=== PATIENT | female | born 1935 | race Two or more races ===

== ENCOUNTER 2016-10-29 13:13 | Emergency (ER) | payer MEDICARE, BC ==
[2016-10-29 13:34] VITALS: BP 135/63
--- NOTE | 2016-10-29 13:54 | UC ---
General HPI - HPI Summary HPI Summary: Yesterday very low energy, spent most of the day in bed, poor appetite. This morning step daughter/caregiver got her out of bed at 10 am and noticed she was warm and her breathing had a lot of whistles in it. Temp was 99.8 at that time. She had the sudden urge to have a BM and didn't make it to the toilet on time ( this is not normal for her); it was somewhat loose. Also has had increased burping and abdominal discomfort, appetite still low today. - History of Current Complaint Chief Complaint: UCGeneralIllness Stated Complaint: FEVER WHEEZING NAUSEA Time Seen by Provider: 10/29/16 13:32 Hx Obtained From: Patient, Family/Drill Bit Sharpener Onset/Duration: Gradual Onset, Lasting Hours Timing: Constant Onset Severity: Mild Current Severity: Mild Associated Signs & Symptoms: Positive: Diarrhea, Decreased Oral Intake, Nausea. Negative: Cough, Chest Pain, Dizziness, Diaphoresis, Headache - Allergy/Home Medications Allergies/Adverse Reactions: Allergies Allergy/AdvReac Type Severity Reaction Status Date / Time No Known Allergies Allergy Verified 01/23/15 19:29 PMH/Surg Hx/FS Hx/Imm Hx Cardiovascular History: Hypertension Other Neurological History: vertigo Other Cancer History: melanoma - Surgical History Surgical History: Yes Surgery Procedure, Year, and Place: MELONOMA REMOVED- Lt [facility]OWER [place]G +20YRS. MYOMECTOMY- 1966. CATARACTS -2011 - Family History Known Family History: Positive: Hypertension - Social History Lives: With Family Alcohol Use: Rare Substance Use Type: None Smoking Status (MU): Never Smoked Tobacco - Immunization History Most Recent Influenza Vaccination: 2013 Most Recent Tetanus Shot: 2013 Most Recent Pneumonia Vaccination: <5yrs Review of Systems Constitutional: Fatigue Skin: Negative Eyes: Negative ENT: Negative Respiratory: Negative Cardiovascular: Negative Gastrointestinal: Diarrhea Genitourinary: Negative Motor: Negative Neurovascular: Negative Musculoskeletal: Negative Neurological: Negative Psychological: Negative All Other Systems Reviewed And Are Negative: Yes Physical Exam Triage Information Reviewed: Yes Appearance: Well-Appearing, No Pain Distress, Well-Nourished Vital Signs: Initial Vital Signs Temp 97.7 F 10/29/16 13:31 Pulse 68 10/29/16 13:31 Resp 16 10/29/16 13:31 BP 135/63 10/29/16 13:31 Pulse Ox 98 10/29/16 13:31 Vital Signs Reviewed: Yes Eye Exam: Other - PERRL Eyes: Positive: Conjunctiva Clear ENT Exam: Normal ENT: Positive: Normal ENT inspection, Hearing grossly normal, Pharynx normal, TMs normal Neck exam: Normal Neck: Positive: Supple, Nontender, No Lymphadenopathy Respiratory Exam: Normal Respiratory: Positive: Chest non-tender, Lungs clear, Normal breath sounds, No respiratory distress, No accessory muscle use Cardiovascular Exam: Normal Cardiovascular: Positive: RRR Abdomen Description: Negative: CVA Tenderness (R), CVA Tenderness (L) Neurological Exam: Normal Neurological: Positive: Alert Skin Exam: Normal Course/Dx - Differential Dx - Multi-Symptom Provider Diagnoses: fatigue Discharge - Discharge Plan Condition: Stable Disposition: HOME Patient Education Materials: Weakness (ED) Referrals: Kasia Reina MD [Primary Care Provider] - Additional Instructions: As we discussed, the mild changes from normal in your functioning are probably from either a passing virus or due to the day-to-day fluctuations in our health and wellbeing. There is no sign on your physical exam or your vital signs that indicate a serious problem or infection. Please return the urine culture as soon as you can collect it. If you have fever over 100.1, trouble breathing, increasing confusion, or severe pain anywhere, please go to the hospital for further testing.
== END 2016-10-29 14:35 | disposition home or self-care (01) ==
LOC: UCEAST 13:13
DX: R53.83 Other fatigue (principal); I10 Essential (primary) hypertension; Z85.820 Personal history of malignant melanoma of skin
CPT/HCPCS: 87077; 87086; 87186; 99212; G0463

== ENCOUNTER 2016-11-20 12:53 | Emergency (ER) | payer MEDICARE, BC ==
[2016-11-20 13:01] VITALS: BP 146/66
--- NOTE | 2016-11-20 13:11 | UC ---
Knee Pain HPI - HPI Summary HPI Summary: 5 days of worsening right knee pain, no falls or injury - History of Current Complaint Chief Complaint: UCLowerExtremity Stated Complaint: KNEE PAIN Time Seen by Provider: 11/20/16 13:06 Hx Obtained From: Patient ?: No Onset/Duration: Gradual Onset, Lasting Days - 5, Still Present Severity Initially: Moderate Severity Currently: Moderate Character: Aching, Stiffness Aggravating Factor(s): Movement, Weight Bearing Associated Signs And Symptoms: Positive: Negative Able to Bear Weight: Yes - with pain and walker - Allergies/Home Medications Allergies/Adverse Reactions: Allergies Allergy/AdvReac Type Severity Reaction Status Date / Time No Known Allergies Allergy Verified 11/20/16 13:02 Home Medications: Home Medications Acetaminophen TAB* [Tylenol TAB*] 11/20/16 [History] Donepezil TAB* [Aricept 5 MG TAB*] 11/20/16 [History Confirmed 11/20/16] Escitalopram Oxalate [Lexapro 10 mg] 11/20/16 [History] Melatonin 11/20/16 [History] Methylcellulose (Laxative) [Citrucel] 11/20/16 [History] Multiple Vitamin [Multivitamins] 11/20/16 [History] Psyllium Husk (Bulk) [Psyllium Husk] 11/20/16 [History] PMH/Surg Hx/FS Hx/Imm Hx Previously Healthy: No GI/ History: Gastroesophageal Reflux, Other Other GI/ History: conspiation Psychological History: Depression - Surgical History Surgical History: Yes Surgery Procedure, Year, and Place: MELONOMA REMOVED- Lt [facility]OWER [facility]G +20YRS. MYOMECTOMY- 1966. CATARACTS -2011 - Family History Known Family History: Positive: Hypertension - Social History Occupation: Retired Lives: With Family Alcohol Use: None Substance Use Type: None, Prescribed Smoking Status (MU): Never Smoked Tobacco - Immunization History Most Recent Influenza Vaccination: 2014 Most Recent Tetanus Shot: 2013 Most Recent Pneumonia Vaccination: <5yrs Review of Systems Constitutional: Negative Skin: Negative Eyes: Negative ENT: Negative Respiratory: Negative Cardiovascular: Negative Gastrointestinal: Negative Genitourinary: Negative Motor: Negative Neurovascular: Negative Musculoskeletal: Arthralgia - right knee Neurological: Negative Psychological: Negative All Other Systems Reviewed And Are Negative: Yes Physical Exam Triage Information Reviewed: Yes Appearance: Well-Appearing, No Pain Distress, Well-Nourished Vital Signs: Initial Vital Signs Temp 98.6 F 11/20/16 12:57 Pulse 76 11/20/16 12:57 Resp 12 11/20/16 12:57 BP 146/66 11/20/16 12:57 Pulse Ox 99 11/20/16 12:57 Vital Signs Reviewed: Yes Eye Exam: Normal Eyes: Positive: Conjunctiva Clear ENT Exam: Normal ENT: Positive: Normal ENT inspection, Hearing grossly normal, TMs normal. Negative: Nasal congestion, Nasal drainage, Muffled/hoarse voice Dental Exam: Normal Neck exam: Normal Neck: Positive: Supple, Nontender Respiratory Exam: Normal Respiratory: Positive: Chest non-tender, Lungs clear, Normal breath sounds, No respiratory distress, No accessory muscle use Cardiovascular Exam: Normal Cardiovascular: Positive: RRR, No Murmur, Pulses Normal, Brisk Capillary Refill Musculoskeletal Exam: Normal Musculoskeletal: Positive: No Edema, Strength Limited @ - right leg, ROM Limited @ - pain ful to full extension Neurological Exam: Normal Neurological: Positive: Alert, Muscle Tone Normal Psychological Exam: Normal Skin Exam: Normal Diagnostics - Radiology No standard instances Xray Interpretation: No Acute Changes Radiology Interpretation Completed By: Radiologist - degenerative changes Knee Pain Course/Dx - Course Course Of Treatment: voltarn cream, ultram concider physical therapy and follow with orthopedic MD - Differential Dx/Diagnosis Differential Diagnosis/HQI/PQRI: Contusion, Fracture (Closed), Patellofemoral Syndrome, Sprain, Strain Provider Diagnoses: Degenerative CHanges Right Knee Discharge - Discharge Plan Condition: Stable Disposition: HOME Prescriptions: Diclofenac 1% GEL (NF) [Voltaren 1% GEL (NF)] 1 applic TOPICAL BID #1 tube traMADol TAB* [Ultram*] 1 - 2 tab PO Q8H PRN #20 tab MDD 4 PRN Reason: Pain Patient Education Materials: Osteoarthritis (ED) Referrals: Kasia Reina MD [Primary Care Provider] - 2 Weeks Ye Barker MD [Medical Doctor] - 1 Week
--- NOTE | 2016-11-20 14:00 | RAD ---
Indication: Right knee pain. 4 views of the right knee demonstrates joint space narrowing in the medial compartment. No fracture is identified. IMPRESSION: No fracture of the right knee is noted.
== END 2016-11-20 14:25 | disposition home or self-care (01) ==
LOC: UCEAST 12:53
DX: M17.11 Unilateral primary osteoarthritis, right knee (principal); K21.9 Gastro-esophageal reflux disease without esophagitis; F32.9 Major depressive disorder, single episode, unspecified
CPT/HCPCS: 99212; G0463

== ENCOUNTER 2017-03-29 16:00 | Emergency (ER) | payer MEDICARE, BC ==
[2017-03-29 16:39] VITALS: BP 141/59
[2017-03-29] MEDS ORDERED: Ibuprofen TAB* 600 MG PO ONE (17:31)
--- NOTE | 2017-03-29 18:33 | UC ---
Kurt Steven Alfonso, scribed for Joseph Gutierrez MD on 03/29/17 at 1645 . Throat Pain/Nasal Va HPI - HPI Summary HPI Summary: This patient is an 81 year old F presenting to [facility] accompanied by female with a chief complaint of sore throat since 3 days ago. The patient rates the pain 8/ 10 in severity. Symptoms aggravated and alleviated by nothing. Patient reports hoarse voice, and unproductive cough. Patient denies fever, and rhinorrhea. - History of Current Complaint Chief Complaint: UCGeneralIllness Stated Complaint: SORE THROAT Time Seen by Provider: 03/29/17 16:23 Hx Obtained From: Patient Onset/Duration: Gradual Onset, Lasting Days - 3, Still Present Severity: Severe Pain Intensity: 8 Pain Scale Used: 0-10 Numeric Cough: Nonproductive Associated Signs & Symptoms: Positive: Other - hoarse voice, and unproductive cough. Patient denies fever, and rhinorrhea. - Allergies/Home Medications Allergies/Adverse Reactions: Allergies Allergy/AdvReac Type Severity Reaction Status Date / Time No Known Allergies Allergy Verified 11/20/16 13:02 Home Medications: Home Medications Calcium Citrate TAB* [Citracal TAB*] 600 mg PO BID 03/29/17 [History Confirmed 03/29/17] Coenzyme [id number] E [Coq10/Vitamin E 200-20 mg-Unit] 1 cap PO DAILY WITH MEAL 03/29/17 [History Confirmed 03/29/17] Cyanocobalamin [B-12] 3,000 mcg PO DAILY 03/29/17 [History Confirmed 03/29/17] Donepezil Hydrochloride [Donepezil HCl] 10 mg PO DAILY 03/29/17 [History Confirmed 03/29/17] Fluoxetine HCl [Prozac] 20 mg PO DAILY 03/29/17 [History Confirmed 03/29/17] [place]-3 Fatty Acids [Fish Oil 1200 mg] 1 cap PO 03/29/17 [History] Omeprazole 40 mg PO DAILY 03/29/17 [History] PMH/Surg Hx/FS Hx/Imm Hx - Additional Past Medical History Additional PMH: cancer, depression Previously Healthy: No Psychological History: Depression - Surgical History Surgical History: Yes Surgery Procedure, Year, and Place: MELONOMA REMOVED- Lt [place] [place]G +20YRS. MYOMECTOMY- 1966. CATARACTS -2012 - Family History Known Family History: Positive: Hypertension - Social History Alcohol Use: None Substance Use Type: None Smoking Status (MU): Never Smoked Tobacco - Immunization History Most Recent Influenza Vaccination: 2013 Most Recent Tetanus Shot: 2013 Most Recent Pneumonia Vaccination: <5yrs Review of Systems Constitutional: Other - Negative fever ENT: Sore Throat, Other - hoarse voice; negative rhinorrhea Respiratory: Cough All Other Systems Reviewed And Are Negative: Yes Physical Exam Triage Information Reviewed: Yes Vital Signs: Initial Vital Signs Temp 98.8 F 03/29/17 16:19 Pulse 64 03/29/17 16:19 Resp 18 03/29/17 16:19 BP 141/59 03/29/17 16:19 Pulse Ox 99 03/29/17 16:19 Vital Signs Reviewed: Yes - Additional Comments VITAL SIGNS: Reviewed. GENERAL: Patient is a well-developed and nourished female who is lying comfortable in the stretcher. Patient is not in any acute respiratory distress. HEAD AND FACE: Normocephalic EYES: PERRLA, EOMI x 2. EARS: Hearing grossly intact. MOUTH: Hoarse voice. No muffled voice. Right-sided pharynx erythema. NECK: Supple, trachea is midline, no adenopathy, no JVD, no carotid bruit. CHEST: Symmetric, no tenderness at palpation LUNGS: Clear to auscultation bilaterally. No wheezing or crackles. CVS: Regular rate and rhythm, S1 and S2 present, no murmurs or gallops appreciated. ABDOMEN: Soft, non-tender. Bowel sounds are normal. No abdominal abnormal pulsations. EXTREMITIES: Full ROM in all major joints, no edema, no cyanosis or clubbing. NEURO: Alert and oriented x 3. No acute neurological deficits. Speech is normal and follows commands. SKIN: Dry and warm Throat Pain/Nasal Course/Dx - Course Assessment/Plan: This patient is an 81 year old F presenting to [facility] accompanied by female with a chief complaint of sore throat since 3 days ago. The patient rates the pain 8/10 in severity. Symptoms aggravated and alleviated by nothing. Patient reports hoarse voice, and unproductive cough. Patient denies fever, and rhinorrhea. Rapid Influenza A and B negative. Rapid Strep negative. Patient will be discharged with follow up from PCP. The patient is agreeable with this plan. The patient is hemodynamically stable, alert and oriented x3. - Differential Dx/Diagnosis Differential Diagnosis/HQI/PQRI: Laryngitis, Pharyngitis, Tonsillitis, URI Provider Diagnoses: Viral pharyngitis Discharge - Discharge Plan Condition: Stable Disposition: HOME Patient Education Materials: Pharyngitis (ED) Referrals: Kasia Reina MD [Primary Care Provider] - 3 Days Additional Instructions: RETURN TO THE EMERGENCY DEPARTMENT OR CONVIENT CARE FOR CHANGING OR WORSENING SYMPTOMS. The documentation as recorded by the Kurt griffin Alfonso accurately reflects the service I personally performed and the decisions made by Matt choi Walter, MD.
== END 2017-03-29 17:35 | disposition home or self-care (01) ==
LOC: UCEAST 16:00
DX: J02.8 Acute pharyngitis due to other specified organisms (principal); B97.89 Other viral agents as the cause of diseases classified elsewhere; F32.9 Major depressive disorder, single episode, unspecified; Z79.899 Other long term (current) drug therapy
CPT/HCPCS: 87502; 87651; 99212; A9270-GY; G0463